=== PATIENT | male | born 1970 | race Two or more races ===

== ENCOUNTER 2021-04-23 12:30 | Inpatient (IN) | payer MEDICAID, OTHER ==
[~2021-04-23] VITALS: Ht 175.3 cm; Wt 110.3 kg
[2021-04-23] MEDS ORDERED: methylPREDNISolone SOD SUCC 125 MG/2 ML VL IV ONE (12:45)
[2021-04-23] MEDS ORDERED: IOHEXOL 350 MG/ML 100ML IJ ONE (13:35)
[2021-04-23 13:46] LABS: Hematocrit 51.3 % (41.0-53.0); Hemoglobin 16.4 g/dL (13.5-17.5); Mean Corpuscular Hemoglobin 28.1 pg (28.0-32.0); Mean Corpuscular Volume 87.7 fL (80.0-100.0); Red Blood Cells 5.85 10^6/uL (4.5-5.90); Red Cell Distribution Width 13.9 % (11.8-14.3)
[2021-04-23 13:49] LABS: Band Neutrophils % (manual) 0; Basophils % (manual) 0 (0.0-2.0); Blast Cells 0; Metamyelocytes % 0; Myelocytes % 0; Promyelocytes % 0; Reactive Lymphocytes 0
[2021-04-23 14:02] LABS: Albumin 4.1 g/dL (3.4-5.0); CRP High Sensitivity 0.03 mg/dL (< 0.3); Calcium 10.2 mg/dL (8.5-10.1); Potassium 3.7 mmol/L (3.5-5.1)
[2021-04-23 14:08] LABS: BUN/Creatinine Ratio 12.4; Bilirubin, Total 0.4 mg/dL (0.2-1.0); Total Protein 8.5 g/dL (6.4-8.2)
[2021-04-23 16:58] LABS: Eosinophils % (manual) 7 (0-7); Lymphocytes % (manual) 41 (10.0-50.0); Monocytes % (manual) 8 (0-12)
[2021-04-23] MEDS ORDERED: NITROGLYCERIN 0.4 MG SL TAB SL PRN (18:45)
[2021-04-23] MEDS ORDERED: MORPHINE SULFATE INJECTION 2 MG/ML SYRG IV PRN (18:45)
[2021-04-23] MEDS: SODIUM CHLORIDE 0.9% 1,000 ML IV SCH ×2 (20:10→22:54)
[2021-04-23] MEDS: ENOXAPARIN SOD 40 MG/0.4 ML SYRINGE SC SCH (22:00)
[2021-04-23] MEDS ORDERED: TESTPOW5 (22:46)
[2021-04-23] MEDS ORDERED: ATOR20TA PO (22:46)
[2021-04-23] MEDS ORDERED: FAMO-12 PO (22:46)
[2021-04-23] MEDS ORDERED: METF-370 PO (22:46)
[2021-04-23] MEDS ORDERED: PRA1C PO (22:46)
[2021-04-23] MEDS ORDERED: CHOL1TAB42 PO (22:46)
[2021-04-23] MEDS ORDERED: SERT-376 PO (22:46)
[2021-04-23] MEDS ORDERED: TOPI50TA32 PO (22:46)
[2021-04-23] MEDS ORDERED: HYDR25TA4 PO (22:46)
[2021-04-23] MEDS ORDERED: AMLO-489 PO (22:46)
[2021-04-23] MEDS ORDERED: LOSA25TA38 PO (22:46)
[2021-04-23] MEDS ORDERED: LEVE500T32 PO (22:46)
[2021-04-23 22:47] VITALS: BP 133/91
[2021-04-24] MEDS ORDERED: FAMOTIDINE 20 MG TAB PO ONE ×2 (01:45)
[2021-04-24 05:00] VITALS: BP 117/75
[2021-04-24 05:39] LABS: Basophils # (auto) 0 10 ^3/uL (0-0.2); Basophils % (auto) 0.6 % (0.0-2.0); Eosinophils # (auto) 0 10 ^3/uL (0-0.8); Hematocrit 46.6 % (41.0-53.0); Hemoglobin 15.3 g/dL (13.5-17.5); Lymphocytes # (auto) 1.1 10 ^3/uL (0.4-5.4); Lymphocytes % (auto) 17.2 % (10.0-50.0); Mean Corpuscular Hemoglobin 28.7 pg (28.0-32.0); Mean Corpuscular Hgb Conc. 32.9 g/dL (32.0-36.0); Mean Corpuscular Volume 87.1 fL (80.0-100.0); Monocytes # (auto) 0.3 10 ^3/uL (0-1.3); Neutrophils # (auto) 4.7 10 ^3/uL (1.6-8.6); Neutrophils % (auto) 77.2 % (37.0-80.0); Nucleated Red Blood Cells % 0.1 %; Red Blood Cells 5.35 10^6/uL (4.5-5.90); Red Cell Distribution Width 13.7 % (11.8-14.3); White Blood Cell 6.1 10^3/uL (4.4-10.8)
[2021-04-24 05:48] LABS: Albumin 3.5 g/dL (3.4-5.0); Calcium 9.7 mg/dL (8.5-10.1); Potassium 4.5 mmol/L (3.5-5.1)
[2021-04-24 05:52] LABS: Bilirubin, Total 0.3 mg/dL (0.2-1.0); Total Protein 7.5 g/dL (6.4-8.2)
[2021-04-24 09:00] VITALS: BP 144/84
[2021-04-24] MEDS: ZINC SULFATE 220mg CAP or TAB PO SCH (09:14)
[2021-04-24] MEDS: FAMOTIDINE 20 MG TAB PO SCH (09:14)
[2021-04-24] MEDS: AZITHROMYCIN 500MG/ 250ML 250 ML IV SCH (09:14)
[2021-04-24] MEDS: ENOXAPARIN SOD 40 MG/0.4 ML SYRINGE SC SCH ×2 (09:15→22:24)
[2021-04-24] MEDS: CHOLECALCIFEROL (VITD3) 2,000 UNIT CAP/TAB PO SCH (09:15)
[2021-04-24] MEDS: ASCORBIC ACID 1,000 MG TAB PO SCH (09:15)
[2021-04-24] MEDS ORDERED: FAMOTIDINE 20 MG TAB PO SCH (10:00)
[2021-04-24 13:00] VITALS: BP 126/86
[2021-04-24] MEDS ORDERED: DEXTROSE (50%) 50ML SYRG IV PRN (15:30)
[2021-04-24] MEDS ORDERED: ALBUTEROL SULF HFA 90MCG INH 200DOSE IN PRN (15:30)
[2021-04-24] MEDS ORDERED: DexAMETHasone SOD PHOS 10MG/1ML VIAL INJ IV ONE (16:30)
[2021-04-24 17:00] VITALS: BP 124/76
[2021-04-24] MEDS: InsuLIN REG 1unit/0.01ml Soln (100units/ml) SC SCH ×2 (17:00→22:39)
[2021-04-24] MEDS: ACCU-CHEK COMFORT CURVE STRIP VI SCH ×2 (17:17→22:00)
[2021-04-24] MEDS: BUDESONIDE (INHALATION) 180 MCG IH IN SCH (20:06)
[2021-04-24 22:00] VITALS: BP 127/74
[2021-04-24] MEDS: levETIRAcetam 500 MG TAB PO SCH (22:23)
[2021-04-24] MEDS: TOPIRAMATE 25 MG TAB PO SCH (22:23)
[2021-04-25 05:00] VITALS: BP 122/78
[2021-04-25] MEDS: BUDESONIDE (INHALATION) 180 MCG IH IN SCH (06:16)
[2021-04-25] MEDS: ACCU-CHEK COMFORT CURVE STRIP VI SCH ×3 (06:54→17:00)
[2021-04-25] MEDS: InsuLIN REG 1unit/0.01ml Soln (100units/ml) SC SCH ×3 (06:54→17:27)
[2021-04-25 07:13] LABS: CRP High Sensitivity 0.02 mg/dL (< 0.3)
[2021-04-25 07:22] LABS: INR 1.02 (0.9-1.15)
[2021-04-25 08:00] VITALS: BP 120/77
[2021-04-25] MEDS: AZITHROMYCIN 500MG/ 250ML 250 ML IV SCH (09:28)
[2021-04-25] MEDS: ZINC SULFATE 220mg CAP or TAB PO SCH (09:28)
[2021-04-25] MEDS: FAMOTIDINE 20 MG TAB PO SCH (09:29)
[2021-04-25] MEDS: ENOXAPARIN SOD 40 MG/0.4 ML SYRINGE SC SCH (09:29)
[2021-04-25] MEDS: CHOLECALCIFEROL (VITD3) 2,000 UNIT CAP/TAB PO SCH (09:29)
[2021-04-25] MEDS: levETIRAcetam 500 MG TAB PO SCH (09:29)
[2021-04-25] MEDS: ASCORBIC ACID 1,000 MG TAB PO SCH (09:29)
[2021-04-25] MEDS ORDERED: DexAMETHasone SOD PHOS 10MG/1ML VIAL INJ IV SCH (10:00)
[2021-04-25] MEDS ORDERED: SERTRALINE HCL 50 MG TAB PO SCH (10:00)
[2021-04-25] MEDS ORDERED: FAMOTIDINE 20 MG TAB PO SCH (10:00)
[2021-04-25] MEDS: TOPIRAMATE 25 MG TAB PO SCH (10:36)
[2021-04-25 12:00] VITALS: BP 128/85
[2021-04-25] MEDS ORDERED: ONDANSETRON HCL 4 MG/2 ML VIAL IV PRN (12:15)
[2021-04-25] MEDS ORDERED: ASCO10003 PO (13:04)
[2021-04-25] MEDS ORDERED: ALBUAER3 IN (13:04)
[2021-04-25] MEDS ORDERED: ZINC220T6 PO (13:07)
[2021-04-25] MEDS ORDERED: DOXY-286 PO (13:07)
[2021-04-25] MEDS ORDERED: DEX4T PO (13:07)
[2021-04-25] MEDS ORDERED: ASPI-378 PO (13:07)
[2021-04-25 16:00] VITALS: BP 131/83
[2021-04-25 17:18] VITALS: BP 131/83
== END 2021-04-25 19:00 | disposition home or self-care (01) | DRG 137 ==
LOC: ER 12:44 → OVERFLOW 18:41 → EAST 21:50
PROVIDERS: ADMIT Internal Medicine; ATTEND Internal Medicine
DX: U07.1 COVID-19 (principal); E87.2 Acidosis; N17.9 Acute kidney failure, unspecified; I50.9 Heart failure, unspecified; I11.0 Hypertensive heart disease with heart failure; E66.9 Obesity, unspecified; E86.0 Dehydration; R06.03 Acute respiratory distress; G40.909 Epilepsy, unspecified, not intractable, without status epilepticus; E78.00 Pure hypercholesterolemia, unspecified; E78.5 Hyperlipidemia, unspecified; J42 Unspecified chronic bronchitis; Z68.35 Body mass index [BMI] 35.0-35.9, adult; Z82.5 Family history of asthma and other chronic lower respiratory diseases; R73.03 Prediabetes
CPT/HCPCS: 36415; 71045; 71275; 80053; 80061; 82306; 82728; 82962; 83036; 83605; 83880; 84484; 85007; 85025; 85027; 85379; 85610; 86141; 87040; 87081; 87426; 93005; 93306; 93970; 96374; G0378; J1100; J1815; J2405

== ENCOUNTER 2021-10-25 07:37 | Emergency (ER) | payer MEDICAID ==
[~2021-10-25] VITALS: Ht 175.3 cm; Wt 105.4 kg
[~2021-10-25 07:37] MED LIST: ALBUAER3 IN; AMLO-489 PO; ASCO10003 PO; ATOR20TA PO; CHOL1TAB42 PO; DEX4T PO; DOXY-286 PO; FAMO-12 PO; HYDR25TA4 PO; LEVE500T32 PO; LOSA25TA38 PO; METF-370 PO; PRA1C PO; SERT-376 PO; TESTPOW5; TOPI50TA32 PO; ZINC220T6 PO
[2021-10-25 08:54] LABS: Basophils # (auto) 0 10 ^3/uL (0-0.2); Basophils % (auto) 0.2 % (0.0-2.0); Eosinophils # (auto) 0 10 ^3/uL (0-0.8); Eosinophils % (auto) 0.8 % (0.0-7.0); Hemoglobin 15.5 g/dL (13.5-17.5); Lymphocytes # (auto) 0.4 10 ^3/uL (0.4-5.4); Lymphocytes % (auto) 9.9 % (10.0-50.0); Mean Corpuscular Hemoglobin 27.4 pg (28.0-32.0); Mean Corpuscular Hgb Conc. 31.7 g/dL (32.0-36.0); Mean Corpuscular Volume 86.3 fL (80.0-100.0); Monocytes # (auto) 0.2 10 ^3/uL (0-1.3); Monocytes % (auto) 4.8 % (0.0-12.0); Neutrophils # (auto) 3.7 10 ^3/uL (1.6-8.6); Neutrophils % (auto) 84.3 % (37.0-80.0); Nucleated Red Blood Cells % 0.2 %; Red Blood Cells 5.67 10^6/uL (4.5-5.90); White Blood Cell 4.3 10^3/uL (4.4-10.8)
[2021-10-25 09:57] LABS: Potassium 3.6 mmol/L (3.5-5.1)
[2021-10-25 10:19] LABS: BUN/Creatinine Ratio 6.5; Bilirubin, Total 0.6 mg/dL (0.2-1.0); Total Protein 7.2 g/dL (6.4-8.2)
[2021-10-25] MEDS ORDERED: IOHEXOL 300 MG/ML 100ML BOTTLE IJ ONE (11:00)
[2021-10-25] MEDS ORDERED: PROCHLORPERAZINE EDISYLATE 5 MG/ML 2ML VIAL IV ONE (11:00)
[2021-10-25] MEDS ORDERED: SODIUM CHLORIDE 0.9% 1,000 ML IVB ONE (11:00)
[2021-10-25 11:15] LABS: Magnesium 2.1 mg/dL (1.6-2.6)
[2021-10-25] MEDS ORDERED: LORazepam 2MG/ML-1ML VIAL IV ONE (11:45)
[2021-10-25 13:07] LABS: Urine Bacteria NONE SEEN /hpf (None Seen); Urine Blood Negative /uL (Negative); Urine Mucus FEW (None Seen); Urine Specific Gravity 1.033 (1.001-1.035); Urine WBC 6 /hpf (0 - 3)
[2021-10-25] MEDS ORDERED: CIPR-173 PO (18:03)
[2021-10-25] MEDS ORDERED: METO-281 PO (18:03)
[2021-10-25 18:50] VITALS: BP 126/72
== END 2021-10-25 19:00 | disposition home or self-care (01) ==
LOC: ER 07:37
DX: K52.9 Noninfective gastroenteritis and colitis, unspecified (principal); N39.0 Urinary tract infection, site not specified; G43.909 Migraine, unspecified, not intractable, without status migrainosus; R71.8 Other abnormality of red blood cells; I11.0 Hypertensive heart disease with heart failure; I50.9 Heart failure, unspecified; E11.9 Type 2 diabetes mellitus without complications; Z86.69 Personal history of other diseases of the nervous system and sense organs; Z87.890 Personal history of sex reassignment; Z79.899 Other long term (current) drug therapy; Z79.2 Long term (current) use of antibiotics; Z88.5 Allergy status to narcotic agent; Z88.8 Allergy status to other drugs, medicaments and biological substances
CPT/HCPCS: 36415; 71046; 80053; 81001; 82962; 83690; 83735; 84443; 84484; 85025; 93005; 96361; 96365; 96375; 99285; J0780; J1953; J7030; J7060